=== PATIENT | female | born 1975 | race Caucasian/White ===

== ENCOUNTER 2017-10-22 19:59 | Emergency (ER) | payer OTHER ==
[~2017-10-22] VITALS: Ht 172.7 cm; Wt 74.1 kg
[~2017-10-22 19:59] MED LIST: Motrin PO; ZOFRAN ODT4 MG PO
[2017-10-22 20:29] LABS: HEMATOCRIT 35.8 % (36.0-46.0); HEMOGLOBIN 11.6 G/DL (11.9-15.5); MCH 25.8 PG (29.0-34.0); MCHC 32.4 G/DL (30.0-36.0); MCV 79.6 FL (83-99); PLATELET COUNT 263 K/uL (156-360); RBC DIS.WIDTH-CV 13.5 % (11.8-14.6); RBC DIS.WIDTH-SD 39.1 % (39-53); WHITE BLOOD COUNT 7.6 K/uL (4.1-10.2)
[2017-10-22 20:38] LABS: PTT 31.3 SEC (25-37)
[2017-10-22 20:41] LABS: CHLORIDE 108 mEq/L (99-109); POTASSIUM 3.8 mEq/L (3.7-5.4); SODIUM 139 mEq/L (136-147)
[2017-10-22 20:42] LABS: GLUCOSE 89 mg/dL (70-99)
[2017-10-22 20:46] LABS: CREATININE 0.8 mg/dL (0.6-1.3); GFR ESTIMATE (CALCULATED) > 59 mL/min/
[2017-10-22 20:47] LABS: UREA NITROGEN (BUN) 13 mg/dL (9-23)
[2017-10-22 20:54] LABS: TROP-I INTERPRETATION NEGATIVE; TROPONIN-I < 0.01 ng/mL (0.0-0.30)
[2017-10-22 22:49] LABS: TROP-I INTERPRETATION NEGATIVE; TROPONIN-I < 0.01 ng/mL (0.0-0.30)
[2017-10-22 23:35] VITALS: BP 112/60
== END 2017-10-22 23:38 | disposition home or self-care (01) ==
LOC: EME → EDBD 19:59 → EME 19:59
PROVIDERS: Emergency Medicine
DX: R07.9 Chest pain, unspecified (principal); M25.519 Pain in unspecified shoulder; M79.603 Pain in arm, unspecified
CPT/HCPCS: 80048; 84484; 85027; 85610; 85730; 93005; 99281; 99284